=== PATIENT | female | born 1945 | race Caucasian/White ===

== ENCOUNTER 2018-01-03 22:23 | Emergency (ER) | payer OTHER ==
[~2018-01-03] VITALS: Ht 147.3 cm; Wt 43.9 kg
[2018-01-03 22:38] LABS: HEMATOCRIT 40.2 % (36.0-46.0); HEMOGLOBIN 13.4 G/DL (11.9-15.5); MCH 28.6 PG (29.0-34.0); MCHC 33.3 G/DL (30.0-36.0); MCV 85.9 FL (83-99); PLATELET COUNT 314 K/uL (156-360); RBC DIS.WIDTH-CV 14.4 % (11.8-14.6); RED BLOOD COUNT 4.68 M/uL (3.80-5.20); WHITE BLOOD COUNT 12.9 K/uL (4.1-10.2)
[2018-01-03 22:48] LABS: INTER. NORMALIZED RATIO 1.1
[2018-01-03 22:50] LABS: PTT 25.2 SEC (25-37)
[2018-01-03 22:52] LABS: ALBUMIN 4.1 g/dL (3.2-4.8); CHLORIDE 104 mEq/L (99-109); POTASSIUM 3.9 mEq/L (3.7-5.4); SODIUM 140 mEq/L (136-147)
[2018-01-03 22:54] LABS: GLUCOSE 166 mg/dL (70-99)
[2018-01-03 22:55] LABS: TOTAL PROTEIN 7.4 g/dL (6.4-8.3)
[2018-01-03 22:56] LABS: TOTAL BILIRUBIN 0.4 mg/dL (0.0-1.0)
[2018-01-03 22:58] LABS: ALKALINE PHOSPHATASE 122 IU/L (3-129); CREATININE 0.9 mg/dL (0.6-1.3); GFR ESTIMATE (CALCULATED) > 59 mL/min/
[2018-01-03 22:59] LABS: UREA NITROGEN (BUN) 15 mg/dL (9-23)
[2018-01-03 23:00] LABS: AST (GOT) 26 IU/L (2-34)
[2018-01-03 23:01] LABS: ALT (GPT) 10 IU/L (3-49); LIPASE 6 U/L (1.0-51.0)
[2018-01-03 23:07] LABS: TROP-I INTERPRETATION NEGATIVE; TROPONIN-I < 0.01 ng/mL (0.0-0.30)
[2018-01-04 01:41] LABS: APPEARANCE CLEAR ((CLEAR)); BILIRUBIN NEGATIVE; BLOOD NEGATIVE; COLOR YELLOW ((YELLOW)); GLUCOSE (STRIP) NEGATIVE; KETONES 20; LEUKOCYTES NEGATIVE; NITRITE NEGATIVE; PROTEIN (STRIP) NEGATIVE; SPECIFIC GRAVITY 1.016 (1.000-1.030); UCUL ADDED? NO; UROBILINOGEN 0.2 MG/DL (0.2-1.0)
[2018-01-04] MEDS ORDERED: ZOFRAN4 MG PO (01:52)
[2018-01-04] MEDS ORDERED: TRAMADOL HCL50 MG PO (01:52)
[2018-01-04] MEDS ORDERED: FLOMAX0.4 MG PO (01:52)
[2018-01-04 02:39] VITALS: BP 127/66
== END 2018-01-04 02:40 | disposition home or self-care (01) ==
LOC: EME → EDBD 22:23 → EME 22:23
PROVIDERS: Emergency Medicine
DX: N13.0 Hydronephrosis with ureteropelvic junction obstruction (principal); R94.31 Abnormal electrocardiogram [ECG] [EKG]; J45.909 Unspecified asthma, uncomplicated; Z87.442 Personal history of urinary calculi; Z86.69 Personal history of other diseases of the nervous system and sense organs
CPT/HCPCS: 74176; 80053; 81003; 83690; 84484; 85027; 85610; 85730; 93005; 99281; 99285; J2405; J3010; J7030